=== PATIENT | male | born 1980 | race Caucasian/White ===

== ENCOUNTER 2017-09-04 11:43 | Emergency (ER) | payer MEDICAID ==
[~2017-09-04] VITALS: Ht 152.4 cm; Wt 108.9 kg
[2017-09-04 14:35] VITALS: BP 178/104
[2017-09-04 15:06] LABS: BASOPHIL % 0.2 % (0-2); PLATELET COUNT 260 x10^3mcL (130-400); RED CELL DISTRIBUTION WIDTH 13.3 % (11.5-14.5)
[2017-09-04 15:13] LABS: CARBON DIOXIDE 26.9 mmol/L (21-32); CHLORIDE SERUM 103 mmol/L (98-107); CREATININE SERUM 1.3 mg/dL (0.7-1.3); GFR1 > 60 mL/min; GLUCOSE SERUM 105 mg/dL (74-106); POTASSIUM SERUM 4.1 mmol/L (3.5-5.1); SODIUM SERUM 135 mmol/L (136-145)
[2017-09-04 15:18] LABS: ALKALINE PHOSPHATASE 102 U/L (46-116); ALT/SGPT 62 U/L (16-63); AST/SGOT 26 U/L (15-37); BILIRUBIN TOTAL 0.47 mg/dL (0.20-1.00); TOTAL PROTEIN, SERUM 6.9 g/dL (6.4-8.2)
[2017-09-04 15:19] LABS: ALBUMIN 3.2 g/dL (3.4-5.0)
== END 2017-09-04 17:47 | disposition left against medical advice (07) ==
LOC: ED 11:43
PROVIDERS: Emergency Medicine
DX: J02.9 Acute pharyngitis, unspecified (principal); R51 Headache
CPT/HCPCS: 86308; J0696; J1100; J2270; J3490; J7030; J7050